=== PATIENT | female | born 1985 | race Caucasian/White ===

== ENCOUNTER → 2017-04-26 | Outpatient (CLI) | payer OTHER ==
[2017-04-26 13:40] LABS: FREE T4 0.96 NG/DL (0.76-1.46)
[2017-04-26 14:37] LABS: PROLACTIN 6.7 NG/ML
== END ==
LOC: M WUC 11:03
PROVIDERS: ATTEND Nurse Practitioner Women's Health
DX: N92.6 Irregular menstruation, unspecified (principal)

== ENCOUNTER 2017-06-14 09:38 | Emergency (ER) | payer OTHER ==
[~2017-06-14] VITALS: Ht 167.6 cm; Wt 77.3 kg
[2017-06-14] MEDS ORDERED: IBUP200C10 PO (09:53)
[2017-06-14 10:40] VITALS: BP 121/71
== END 2017-06-14 11:03 | disposition home or self-care (01) ==
LOC: M ED 09:38
DX: S70.11XA Contusion of right thigh, initial encounter (principal); V91 Other injury due to accident to watercraft; Y92.099 Unspecified place in other non-institutional residence as the place of occurrence of the external cause; Y93.9 Activity, unspecified; Y99.9 Unspecified external cause status; Z88.5 Allergy status to narcotic agent

== ENCOUNTER 2021-12-18 21:39 | Emergency (ER) | payer OTHER ==
[~2021-12-18] VITALS: Ht 167.6 cm; Wt 87.5 kg
[~2021-12-18 21:39] MED LIST: IBUP200C25 PO
[2021-12-19 06:00] VITALS: BP 145/74
[2021-12-19] MEDS ORDERED: BACT800T5 PO (06:28)
[2021-12-19] MEDS ORDERED: BACTRIM 160MG/800MG DS TAB PO ONE (06:30)
== END 2021-12-19 06:44 | disposition home or self-care (01) ==
LOC: M ED 21:39
DX: L03.313 Cellulitis of chest wall (principal); L02.91 Cutaneous abscess, unspecified; Z88.5 Allergy status to narcotic agent